=== PATIENT | female | born 1990 | race Two or more races ===

== ENCOUNTER 2019-12-19 22:44 | Inpatient (IN) | payer MEDICAID, OTHER ==
[~2019-12-19] VITALS: Ht 165.1 cm; Wt 58.0 kg
[~2019-12-19 22:44] MED LIST: OXYC-302 PO
[2019-12-19] MEDS ORDERED: SODIUM CHLORIDE 0.9% 1,000 ML IV ONE (23:56)
[2019-12-20] MEDS ORDERED: KETOROLAC 30 MG/1 ML IVPush ONE
[2019-12-20] MEDS ORDERED: SODIUM CHLORIDE FLUSH 10ML SYR IVF ONE
[2019-12-20] MEDS ORDERED: MORPHINE SULFATE 4 MG/ML, 1ML IVPush PRN
[2019-12-20] MEDS ORDERED: ONDANSETRON 2MG/ML, 2ML IVPush ONE
[2019-12-20] MEDS ORDERED: ONDANSETRON 2MG/ML, 2ML ONE ×2 (00:07→03:24)
[2019-12-20] MEDS ORDERED: KETOROLAC 30 MG/1 ML ONE (00:07)
[2019-12-20] MEDS ORDERED: MORPHINE SULFATE 4 MG/ML, 1ML ONE (00:08)
[2019-12-20 00:20] LABS: MEAN CORPUSCULAR HEMOGLOBIN 29.3 pg (27.0-34.8); MEAN CORPUSCULAR VOLUME 88.7 fL (80-100); PLATELET COUNT 401 x10^3/uL (130-400); RED BLOOD COUNT 4.73 x10^6/uL (3.82-5.3); RED CELL DISTRIBUTION WIDTH 12.8 % (9.6-15.2)
[2019-12-20 00:29] LABS: ALANINE AMINOTRANSFERASE 13 U/L (12-78); ALBUMIN 3.8 g/dL (3.4-5.0); ANION GAP 8 mmol/L (5-15); CALCIUM 8.9 mg/dL (8.5-10.1); CHLORIDE 110 mmol/L (98-107); CREATININE 1.36 mg/dL (0.55-1.02)
[2019-12-20 00:32] LABS: ALKALINE PHOSPHATASE 55 U/L (45-117); BILIRUBIN,TOTAL 0.3 mg/dL (0.2-1.0); MICROSCOPIC INDICATED; TOTAL PROTEIN 7.9 g/dL (6.4-8.2)
[2019-12-20 00:50] LABS: MD YES
[2019-12-20 00:53] LABS: BAND#(MANUAL) 0.35 x10^3/uL; BANDS%(MANUAL) 2 % (0-7); LYMPH#(MANUAL) 1.73 x10^3/uL (1-3.4); LYMPHS% (MANUAL) 10 % (22-44); SEG#(MANUAL) 15.22 x10^3/uL (1.8-6.8); SEGS% (MANUAL) 88 % (42-75)
[2019-12-20 00:54] LABS: <PLATELET ESTIMATE> INCREASED; <PLT MORPHOLOGY> NORMAL PLT MORPH; <RBC MORPHOLOGY> NORMAL
[2019-12-20] MEDS ORDERED: CEFTRIAXONE PMX 1GM/50ML 50 ML ONE (01:16)
[2019-12-20] MEDS ORDERED: PROMETHAZINE 25 MG/ML, 1ML ONE (01:27)
[2019-12-20] MEDS ORDERED: PROMETHAZINE 25 MG/ML, 1ML IM ONE (01:30)
[2019-12-20] MEDS ORDERED: CEFTRIAXONE PMX 1GM/50ML 50 ML IV ONE (01:30)
--- NOTE | 2019-12-20 02:16 | NUR ---
PT MUCH MORE COMFORTABLE AT THIS TIME. PAIN AT A TOLERABLE LEVEL. NO NAUSEA OR VOMITING AT THIS TIME. PT AWARE OF OR. REPORT GIVEN TO KRYSTAL CHACON IN THE OR.
--- NOTE | 2019-12-20 02:45 | NUR ---
REPORT GIVEN TO SALLIE CHACON ON 4TH FLOOR.
[2019-12-20] MEDS ORDERED: FENTANYL PF 100 MCG/2ML ONE ×3 (02:58→04:33)
[2019-12-20] MEDS ORDERED: SUCCINYLCHOLINE 20 MG/ML, 10ML ONE (03:01)
[2019-12-20] MEDS ORDERED: PROPOFOL 10 MG/ML, 20ML ONE (03:24)
[2019-12-20] MEDS ORDERED: DEXAMETHASONE 4 MG/ML, 1ML ONE (03:24)
[2019-12-20] MEDS ORDERED: CEFAZOLIN 1,000 MG ONE (03:24)
[2019-12-20] MEDS ORDERED: ACETAMINOPHEN 100 ML IVPB ONE (04:00)
[2019-12-20] MEDS ORDERED: FLUMAZENIL 0.1 MG/1 ML, 5ML ONE (04:34)
[2019-12-20] MEDS ORDERED: NALOXONE 1 MG/ML, 2ML ONE (04:34)
[2019-12-20] MEDS ORDERED: LIDOCAINE 1%, 10ML ONE (04:34)
[2019-12-20] MEDS ORDERED: MIDAZOLAM 1 MG/ML, 5ML ONE (04:34)
[2019-12-20] MEDS: ONDANSETRON 2MG/ML, 2ML IVPush PRN (06:09)
[2019-12-20] MEDS: SODIUM CHLORIDE 0.9% 1,000 ML IV SCH ×2 (06:11→15:24)
[2019-12-20 06:14] VITALS: BP 107/37
[2019-12-20 06:31] VITALS: BP 128/80
[2019-12-20] MEDS ORDERED: MIDAZOLAM 1 MG/ML, 2ML IVPush ONE (10:00)
[2019-12-20 18:53] VITALS: BP 108/73
[2019-12-20] MEDS: morphine SULFATE 10 MG/ML, 1ML IVPush PRN (20:30)
[2019-12-21] MEDS: SODIUM CHLORIDE 0.9% 1,000 ML IV SCH ×2 (00:46→12:01)
[2019-12-21] MEDS: CEFTRIAXONE PMX 1GM/50ML 50 ML IV SCH (00:46)
[2019-12-21 00:52] VITALS: BP 98/65
[2019-12-21 05:05] LABS: MEAN CORPUSCULAR HEMOGLOBIN 29.6 pg (27.0-34.8); MEAN CORPUSCULAR HGB CONC 32.9 g/dL (32.4-35.8); MEAN CORPUSCULAR VOLUME 89.9 fL (80-100); MEAN PLATELET VOLUME 8.1 fL (7.4-10.4); PLATELET COUNT 226 x10^3/uL (130-400); RED BLOOD COUNT 3.86 x10^6/uL (3.82-5.3)
[2019-12-21 05:12] LABS: ANION GAP 7 mmol/L (5-15); CHLORIDE 110 mmol/L (98-107); CREATININE 0.84 mg/dL (0.55-1.02)
[2019-12-21 05:37] LABS: MD YES
[2019-12-21 05:38] LABS: <PLATELET ESTIMATE> ADEQUATE; <PLT MORPHOLOGY> NORMAL PLT MORPH; <RBC MORPHOLOGY> NORMAL; BAND#(MANUAL) 3.06 x10^3/uL; BANDS%(MANUAL) 12 % (0-7); LYMPH#(MANUAL) 0.77 x10^3/uL (1-3.4); LYMPHS% (MANUAL) 3 % (22-44); MONOS#(MANUAL) 0.26 x10^3/uL (0.3-2.7); MONOS% (MANUAL) 1 % (2-9); SEG#(MANUAL) 21.42 x10^3/uL (1.8-6.8); SEGS% (MANUAL) 84 % (42-75)
[2019-12-21 07:17] VITALS: BP 114/80
[2019-12-21] MEDS: morphine SULFATE 10 MG/ML, 1ML IVPush PRN ×4 (09:41→23:19)
[2019-12-21 12:08] VITALS: BP 129/89
[2019-12-21 12:42] LABS: HCT (SEDRATE) 38.8 % (34.6-47.8)
[2019-12-21] MEDS: ONDANSETRON 2MG/ML, 2ML IVPush PRN (13:54)
[2019-12-21] MEDS ORDERED: VISIPAQUE 270 MG/ML, 50ML BOTTLE ONE (15:00)
[2019-12-21] MEDS ORDERED: LIDOCAINE 1%, 10ML ONE (15:09)
[2019-12-21] MEDS ORDERED: FENTANYL PF 100 MCG/2ML ONE (15:19)
[2019-12-21] MEDS ORDERED: MIDAZOLAM 1 MG/ML, 5ML ONE (15:20)
[2019-12-21] MEDS ORDERED: FLUMAZENIL 0.1 MG/1 ML, 5ML ONE (15:20)
[2019-12-21 18:57] VITALS: BP 139/101
[2019-12-21 23:05] VITALS: BP 122/80
[2019-12-22] MEDS: CEFTRIAXONE PMX 1GM/50ML 50 ML IV SCH (00:33)
[2019-12-22 00:36] VITALS: BP 122/82
[2019-12-22] MEDS: ONDANSETRON 2MG/ML, 2ML IVPush PRN ×2 (02:48→15:03)
[2019-12-22] MEDS: ACETAMINOPHEN 325 MG TABLET PO PRN ×2 (02:48→16:15)
[2019-12-22] MEDS: SODIUM CHLORIDE 0.9% 1,000 ML IV SCH ×2 (02:52→12:47)
[2019-12-22 03:35] VITALS: BP 111/74
[2019-12-22 06:07] LABS: ANION GAP 8 mmol/L (5-15); CALCIUM 8.1 mg/dL (8.5-10.1); CHLORIDE 108 mmol/L (98-107)
[2019-12-22 06:19] LABS: CREATININE 0.66 mg/dL (0.55-1.02)
[2019-12-22 06:24] VITALS: BP 129/89
[2019-12-22 06:31] LABS: MD YES; MEAN CORPUSCULAR HEMOGLOBIN 29.6 pg (27.0-34.8); MEAN CORPUSCULAR HGB CONC 33.2 g/dL (32.4-35.8); MEAN CORPUSCULAR VOLUME 89.2 fL (80-100); MEAN PLATELET VOLUME 9.1 fL (7.4-10.4); PLATELET COUNT 209 x10^3/uL (130-400); RED CELL DISTRIBUTION WIDTH 12.7 % (9.6-15.2)
[2019-12-22 06:32] LABS: BAND#(MANUAL) 0.15 x10^3/uL; BANDS%(MANUAL) 1 % (0-7); EOS% (MANUAL) 2 % (1-7); HCT (SEDRATE) 33.9 % (34.6-47.8); LYMPH#(MANUAL) 1.33 x10^3/uL (1-3.4); LYMPHS% (MANUAL) 9 % (22-44); MONOS#(MANUAL) 1.04 x10^3/uL (0.3-2.7); MONOS% (MANUAL) 7 % (2-9); SEG#(MANUAL) 11.99 x10^3/uL (1.8-6.8); SEGS% (MANUAL) 81 % (42-75)
[2019-12-22 06:33] LABS: <PLATELET ESTIMATE> ADEQUATE; <PLT MORPHOLOGY> NORMAL PLT MORPH; <RBC MORPHOLOGY> NORMAL
[2019-12-22] MEDS: OXYcodone/APAP 5/325MG TABLET PO PRN ×2 (11:41→17:38)
[2019-12-22 14:10] VITALS: BP 149/95
[2019-12-22] MEDS ORDERED: ACET325T26 PO (14:17)
[2019-12-22] MEDS ORDERED: CEFD300C37 PO (14:17)
== END 2019-12-22 18:14 | disposition home or self-care (01) | DRG 660 ==
LOC: ED 12-20 00:39 → EDIP 12-20 02:05 → CCU 12-20 06:00 → 4NE 12-20 13:50
PROVIDERS: ADMIT Internal Medicine; ATTEND Hospitalist
PROC: 0T778DZ Dilation of Left Ureter with Intraluminal Device, Via Natural or Artificial Opening Endoscopic (ICD-10-PCS; 2019-12-20)
PROC: 0TJB8ZZ Inspection of Bladder, Via Natural or Artificial Opening Endoscopic (ICD-10-PCS; principal; 2019-12-20 03:45)
DX: N21.1 Calculus in urethra (principal); N13.6 Pyonephrosis; F17.210 Nicotine dependence, cigarettes, uncomplicated; Z20.828 Contact with and (suspected) exposure to other viral communicable diseases; D72.825 Bandemia; Z87.442 Personal history of urinary calculi
CPT/HCPCS: 36415; 50432; 50434; 96361; 96365; 96372; 96375; 99285; J3490; 74176; 76942; 80048; 80053; 81001; 81025; 83690; 85025; 85651; 86140; 87040; 87070; 87075; 87077; 87081; 87086; 87186; 87205; 87635; 99156; 99157; C1894; G0378; J0131; J0690; J0696; J1100; J1885; J2250; J2405; J2550; J2704; J3010; Q9966; C1729; C1751; C1769; C1892; C2625; J0330; J2270; J2310; J7030

== ENCOUNTER 2020-01-17 11:57 | Inpatient (IN) | payer OTHER ==
[~2020-01-17] VITALS: Ht 152.4 cm; Wt 60.9 kg
[~2020-01-17 11:57] MED LIST changes: +ACET325T26 PO; +CEFD300C37 PO
[2020-01-17] MEDS ORDERED: IBUPROFEN 200 MG TABLET ONE (12:06)
[2020-01-17] MEDS ORDERED: IBUPROFEN 200 MG TABLET PO ONE (12:30)
[2020-01-17] MEDS ORDERED: SODIUM CHLORIDE FLUSH 10ML SYR IVF ONE (13:00)
[2020-01-17] MEDS ORDERED: ACETAMINOPHEN 500 MG TABLET PO ONE (13:00)
[2020-01-17] MEDS ORDERED: SODIUM CHLORIDE 0.9% 1,000ML IVBOLUS ONE ×2 (13:00→15:00)
[2020-01-17 13:07] LABS: MEAN CORPUSCULAR HEMOGLOBIN 28.5 pg (27.0-34.8); MEAN CORPUSCULAR HGB CONC 32.3 g/dL (32.4-35.8); MEAN CORPUSCULAR VOLUME 88.2 fL (80-100); PLATELET COUNT 322 x10^3/uL (130-400); RED BLOOD COUNT 4.87 x10^6/uL (3.82-5.3); RED CELL DISTRIBUTION WIDTH 13.1 % (9.6-15.2)
[2020-01-17 13:17] LABS: INTERNATIONAL NORMALIZED RATIO 1.01 (0.93-1.1); PROTHROMBIN TIME 10.7 Seconds (9.6-11.5)
[2020-01-17 13:20] LABS: ALANINE AMINOTRANSFERASE 17 U/L (12-78); ANION GAP 8 mmol/L (5-15); CALCIUM 9.5 mg/dL (8.5-10.1); CHLORIDE 106 mmol/L (98-107); CREATININE 1.03 mg/dL (0.55-1.02)
[2020-01-17 13:24] LABS: ALKALINE PHOSPHATASE 61 U/L (45-117); BILIRUBIN,TOTAL 0.6 mg/dL (0.2-1.0); TOTAL PROTEIN 8.1 g/dL (6.4-8.2)
--- NOTE | 2020-01-17 13:24 | NUR ---
ACADEMIC INTERVENTIONIST: PT TO ROOM WITH STEADY GAIT. NADN. PT GIVEN GOWN ASKED TO CHANGE.
[2020-01-17 13:30] LABS: BASOPHILS # (AUTO) 0.01 x10^3/uL (0-0.1); BASOPHILS % (AUTO) 0 % (0-1); EOSINOPHILS % (AUTO) 0 % (1-7); LYMPHOCYTES # (AUTO) 0.87 x10^3/uL (1-3.4); LYMPHOCYTES % (AUTO) 5 % (22-44); MD SCAN; MONOCYTES # (AUTO) 0.63 x10^3/uL (0.2-0.8); MONOCYTES % (AUTO) 4 % (2-9); NEUTROPHILS # (AUTO) 15.67 x10^3/uL (1.8-6.8); NEUTROPHILS % (AUTO) 91 % (42-75)
--- NOTE | 2020-01-17 13:42 | NUR ---
assumed care of pt. attempt x3 for piv. unsuccessful. pt reports cramping, fevers x2 days. tylenol at home, motrin in lobby. stent 1 month ago for kidney stone, thinks it is infected, has apt on 22 w shu to have stent removed. burning when urinating but for whole month. no n/v/d. pa in room for eval. as
[2020-01-17] MEDS ORDERED: ACETAMINOPHEN 500 MG TABLET ONE (13:52)
--- NOTE | 2020-01-17 14:04 | NUR ---
straight cathed for ua. sent. as
[2020-01-17 14:19] LABS: MICROSCOPIC INDICATED
--- NOTE | 2020-01-17 14:42 | NUR ---
uro consult. plan for admit. piv est. as
[2020-01-17] MEDS ORDERED: CEFTRIAXONE PMX 1GM/50ML 50 ML ONE (14:53)
[2020-01-17] MEDS ORDERED: CEFTRIAXONE PMX 1GM/50ML 50 ML IV ONE (15:00)
[2020-01-17] MEDS ORDERED: HYDROcodone/APAP 5/325 TABLET PO PRN (16:00)
[2020-01-17] MEDS ORDERED: TRAZODONE 50MG TABLET PO PRN (16:00)
[2020-01-17] MEDS ORDERED: hydrALAzine 20 MG/ML, 1ML IVPush PRN (16:00)
[2020-01-17] MEDS ORDERED: BISACODYL 10 MG SUPP PR PRN (16:00)
[2020-01-17] MEDS ORDERED: POLYETHYLENE GLYCOL 17 GM PACKET PO PRN (16:00)
[2020-01-17] MEDS ORDERED: ONDANSETRON 2MG/ML, 2ML IVPush PRN (16:00)
[2020-01-17 16:39] VITALS: BP 103/69
[2020-01-17 16:45] LABS: FREE T4 (FREE THYROXINE) 1.42 ng/dL (0.76-1.46)
[2020-01-17] MEDS: NS + 20MEQ KCL 1,000 ML IV SCH ×2 (17:14→22:43)
[2020-01-17] MEDS: CEFTRIAXONE PMX 1GM/50ML 50 ML IV SCH (17:15)
[2020-01-17 19:00] VITALS: BP 104/66
[2020-01-17] MEDS: ACETAMINOPHEN 325 MG TABLET PO PRN (22:43)
[2020-01-18] VITALS (7 sets, daily range): BP systolic 108–124; BP diastolic 68–88
[2020-01-18] MEDS: ACETAMINOPHEN 325 MG TABLET PO PRN ×4 (03:49→20:13)
[2020-01-18] MEDS: CEFTRIAXONE PMX 1GM/50ML 50 ML IV SCH (04:44)
[2020-01-18 05:18] LABS: ANION GAP 7 mmol/L (5-15); CALCIUM 8.5 mg/dL (8.5-10.1); CHLORIDE 111 mmol/L (98-107); CREATININE 0.77 mg/dL (0.55-1.02)
[2020-01-18 05:19] LABS: MEAN CORPUSCULAR HEMOGLOBIN 29.3 pg (27.0-34.8); MEAN CORPUSCULAR HGB CONC 33.3 g/dL (32.4-35.8); MEAN CORPUSCULAR VOLUME 88.2 fL (80-100); MEAN PLATELET VOLUME 8.8 fL (7.4-10.4); PLATELET COUNT 220 x10^3/uL (130-400); RED BLOOD COUNT 4.16 x10^6/uL (3.82-5.3); RED CELL DISTRIBUTION WIDTH 12.8 % (9.6-15.2)
[2020-01-18 05:41] LABS: MD YES
[2020-01-18 05:43] LABS: <PLATELET ESTIMATE> ADEQUATE; <PLT MORPHOLOGY> NORMAL PLT MORPH; <RBC MORPHOLOGY> NORMAL; BAND#(MANUAL) 2.31 x10^3/uL; BANDS%(MANUAL) 13 % (0-7); LYMPHS% (MANUAL) 9 % (22-44); MONOS% (MANUAL) 9 % (2-9); SEG#(MANUAL) 12.28 x10^3/uL (1.8-6.8); SEGS% (MANUAL) 69 % (42-75)
[2020-01-18] MEDS: NS + 20MEQ KCL 1,000 ML IV SCH ×3 (06:04→23:16)
[2020-01-18] MEDS: morphine SULFATE 10 MG/ML, 1ML IVPush PRN ×2 (08:14→16:52)
[2020-01-18] MEDS ORDERED: LEVOFLOXACIN/PMX 750MG/150ML 150 ML IV SCH (14:00)
[2020-01-19 00:32] VITALS: BP 101/68
[2020-01-19 05:38] LABS: MEAN CORPUSCULAR HEMOGLOBIN 28.7 pg (27.0-34.8); MEAN CORPUSCULAR HGB CONC 32.1 g/dL (32.4-35.8); MEAN CORPUSCULAR VOLUME 89.2 fL (80-100); MEAN PLATELET VOLUME 8.7 fL (7.4-10.4); PLATELET COUNT 206 x10^3/uL (130-400); RED CELL DISTRIBUTION WIDTH 13.1 % (9.6-15.2)
[2020-01-19 05:47] LABS: ANION GAP 7 mmol/L (5-15); CALCIUM 8.9 mg/dL (8.5-10.1); CHLORIDE 113 mmol/L (98-107)
[2020-01-19 05:55] LABS: MD YES
[2020-01-19 05:57] LABS: CREATININE 0.62 mg/dL (0.55-1.02)
[2020-01-19 05:58] LABS: BAND#(MANUAL) 0.68 x10^3/uL; BANDS%(MANUAL) 6 % (0-7); LYMPHS% (MANUAL) 23 % (22-44); MONOS#(MANUAL) 0.45 x10^3/uL (0.3-2.7); MONOS% (MANUAL) 4 % (2-9); SEG#(MANUAL) 7.57 x10^3/uL (1.8-6.8); SEGS% (MANUAL) 67 % (42-75)
[2020-01-19 06:00] LABS: <PLATELET ESTIMATE> ADEQUATE; <PLT MORPHOLOGY> NORMAL PLT MORPH
[2020-01-19 06:03] LABS: <RBC MORPHOLOGY> NORMAL
[2020-01-19] MEDS: NS + 20MEQ KCL 1,000 ML IV SCH (06:19)
[2020-01-19 07:29] VITALS: BP 120/84
[2020-01-19] MEDS: morphine SULFATE 10 MG/ML, 1ML IVPush PRN (12:19)
[2020-01-19 12:25] VITALS: BP 121/80
[2020-01-19] MEDS ORDERED: ACET325T26 PO (12:43)
[2020-01-19] MEDS ORDERED: LEVO750T26 PO (12:43)
== END 2020-01-19 14:05 | disposition home or self-care (01) | DRG 444 ==
LOC: ED 13:56 → SUATTDRO 15:41 → EDIP 15:46 → 3N 15:47 → DCLOUNGE 01-19 14:00
PROVIDERS: ADMIT Internal Medicine; ATTEND Hospitalist
PROC: 0T9B70Z Drainage of Bladder with Drainage Device, Via Natural or Artificial Opening (ICD-10-PCS; principal; 2020-01-17)
DX: K80.20 Calculus of gallbladder without cholecystitis without obstruction (principal); N17.0 Acute kidney failure with tubular necrosis; N20.2 Calculus of kidney with calculus of ureter; N12 Tubulo-interstitial nephritis, not specified as acute or chronic; N10 Acute pyelonephritis; D72.829 Elevated white blood cell count, unspecified; E87.6 Hypokalemia; Z87.442 Personal history of urinary calculi; Z03.818 Encounter for observation for suspected exposure to other biological agents ruled out
CPT/HCPCS: 36415; 74176; 80048; 80053; 81001; 83605; 84145; 84439; 84443; 84703; 85025; 85610; 86140; 87040; 87077; 87086; 87186; 87635; G0378; J0696; J1956; J2405; J3480; J2270; J7030

== ENCOUNTER 2020-01-28 09:54 | Day surgery (SDC) | payer MEDICAID, OTHER ==
[~2020-01-28] VITALS: Ht 152.4 cm; Wt 57.8 kg
[~2020-01-28 09:54] MED LIST changes: +LEVO750T26 PO
[2020-01-28] MEDS ORDERED: LACTATED RINGERS 1,000 ML IV SCH (10:15)
[2020-01-28] MEDS ORDERED: NONE PER PT (10:18)
[2020-01-28 10:23] VITALS: BP 141/97
[2020-01-28] MEDS ORDERED: CHLORHEXIDINE 15 ML UDC MM ONE (10:30)
[2020-01-28 10:48] LABS: HCG UR SG 1.015 (1.003-1.030)
[2020-01-28] MEDS ORDERED: hydrALAzine 20 MG/ML, 1ML IV PRN (11:30)
[2020-01-28] MEDS ORDERED: LABETALOL 5MG/ML, 20ML IV PRN (11:30)
[2020-01-28] MEDS ORDERED: MEPERIDINE/PF 25MG/0.5ML IVPush PRN (11:30)
[2020-01-28] MEDS ORDERED: ACETAMINOPHEN 325 MG TABLET PO PRN (11:30)
[2020-01-28] MEDS ORDERED: OXYcodone 5 MG/5 ML ORAL.SOL UDC PO PRN (11:30)
[2020-01-28] MEDS ORDERED: FENTANYL PF 100 MCG/2ML IV PRN (11:30)
[2020-01-28] MEDS ORDERED: PROMETHAZINE 25 MG/ML, 1ML IVPush PRN (11:30)
[2020-01-28] MEDS ORDERED: ONDANSETRON 2MG/ML, 2ML IVPush PRN (11:30)
[2020-01-28] MEDS ORDERED: ONDANSETRON 2MG/ML, 2ML ONE (11:45)
[2020-01-28] MEDS ORDERED: PROPOFOL 10 MG/ML, 20ML ONE (11:45)
[2020-01-28] MEDS ORDERED: DEXAMETHASONE 4 MG/ML, 1ML ONE (11:45)
[2020-01-28] MEDS ORDERED: CEFAZOLIN 1,000 MG ONE (11:45)
[2020-01-28] MEDS ORDERED: KETOROLAC 30 MG/1 ML ONE (11:45)
[2020-01-28] MEDS ORDERED: PHENAZOPYRIDINE 200 MG TABLET ONE (13:23)
[2020-01-28] MEDS ORDERED: PHENAZOPYRIDINE 200 MG TABLET PO ONE (13:30)
== END 2020-01-28 14:35 | disposition home or self-care (01) ==
LOC: OUT 09:54
PROVIDERS: ATTEND Urology
DX: Z46.6 Encounter for fitting and adjustment of urinary device (principal); Z11.59 Encounter for screening for other viral diseases; N20.2 Calculus of kidney with calculus of ureter; Z79.899 Other long term (current) drug therapy; Z87.891 Personal history of nicotine dependence
CPT/HCPCS: 52353; 74018; 81025; 82360; 87635; 88300; J0690; J1100; J1885; J2250; J2405; J2704; J3010; J7120; 76000